=== PATIENT | female | born 1945 | race Caucasian/White ===

== ENCOUNTER 2018-08-30 16:55 | Emergency (ER) | payer MEDICARE, OTHER ==
--- NOTE | 2018-08-30 17:03 | UC ---
Upper Extremity HPI - HPI Summary HPI Summary: 73 yo female presents with LEFT arm injury. She tells me that about 30min [employer] she was walking her dog and tripped falling against wooden stairs. Her LEFT upper arm impacted the stairs. She did not hit her head or have LOC. Since that time she has been unable to lift her left arm due to pain. She has not taken anything for her discomfort. She denies numbness or tingling. - History of Current Complaint Stated Complaint: ARM INJURY Time Seen by Provider: 08/30/18 17:03 Hx Obtained From: Patient Onset/Duration: Sudden Onset Severity Initially: Severe Severity Currently: Severe Pain Intensity: 10 Pain Scale Used: 0-10 Numeric - Allergies/Home Medications Allergies/Adverse Reactions: Allergies Allergy/AdvReac Type Severity Reaction Status Date / Time No Known Allergies Allergy Verified 08/30/18 17:11 Home Medications: Home Medications Lisinopril 40 mg PO DAILY WITH MEAL 08/30/18 [History Confirmed 08/30/18] Metoprolol Succinate [Toprol Xl] 25 mg PO DAILY WITH MEAL 08/30/18 [History Confirmed 08/30/18] hydroCHLOROthiazide [Hydrochlorothiazide] 12.5 mg PO BID 08/30/18 [History Confirmed 08/30/18] PMH/Surg Hx/FS Hx/Imm Hx Cardiovascular History: Hypertension - Family History Known Family History: Positive: Hypertension - Social History Occupation: Retired Lives: With Family Alcohol Use: Occasionally Substance Use Type: None Smoking Status (MU): Never Smoked Tobacco Review of Systems All Other Systems Reviewed And Are Negative: Yes Constitutional: Positive: Negative Skin: Positive: Negative Respiratory: Positive: Negative Cardiovascular: Positive: Negative Neurovascular: Positive: Negative Musculoskeletal: Positive: Other: - LEFT upper arm pain Neurological: Positive: Negative Psychological: Positive: Negative Physical Exam - Summary Physical Exam Summary: GENERAL: NAD. WDWN. No pain distress. SKIN: No rashes, sores, lesions, or open wounds. CHEST: No accessory muscle use. Breathing comfortably and in no distress. CV: Pulses intact radial and ulnar. Cap refill <2seconds MSK: LEFT ARM: Severe TTP over proximal/mid humerus. Unable to flex shoulder > 30deg due to pain. Ultrasound Spec strength intact. Moving elbow produces pain in upper arm. NEURO: Alert. Sensations intact hand and all fingers. PSYCH: Age appropriate behavior. Triage Information Reviewed: Yes Vital Signs: Vital Signs: Temp Pulse Resp BP Pulse Ox 98.0 F 97 20 190/82 99 08/30/18 17:05 08/30/18 17:05 08/30/18 17:05 08/30/18 17:05 08/30/18 17:05 Vital Signs Reviewed: Yes Upper Extremity Course/Dx - Course Course Of Treatment: She declined pain medication in the clinic. XR: IMPRESSION : #. Mildly impacted fracture at the surgical neck of the humerus. Predisposing decreased. bone density. Recheck BP 171/92. Discussed results with pt. Will place her in a sling and have her f/u with Orthopedics as soon as possible. She declined any rx for pain medication. Advised to use the sling as much as possible and remain immobile and RICE. - Differential Dx/Diagnosis Provider Diagnosis: Humerus surgical neck fracture Discharge - Sign-Out/Discharge Documenting (check all that apply): Patient Departure All imaging exams completed and their final reports reviewed: Yes - Discharge Plan Condition: Stable Disposition: HOME Patient Education Materials: Proximal Humerus Fracture (ED) Referrals: No Primary Care Phys,NOPCP [Primary Care Provider] - Cory Hudson MD [Medical Doctor] - As Soon As Possible Additional Instructions: If you develop a fever, shortness of breath, chest pain, new or worsening symptoms - please call your PCP or go to the ED. Your blood pressure was high at todays visit. Please see your primary provider within 4 weeks for recheck and re-evaluation. 1) Use your sling as much as possible and keep your shoulder immobile 2) Please call Orthopedics at the number below to schedule a follow up appointment as soon as possible - Billing Disposition and Condition Condition: STABLE Disposition: Home
[2018-08-30 17:43] VITALS: BP 171/92
== END 2018-08-30 18:09 | disposition home or self-care (01) ==
LOC: UCEAST 16:55
DX: S42.215A Unspecified nondisplaced fracture of surgical neck of left humerus, initial encounter for closed fracture (principal); W01.198A Fall on same level from slipping, tripping and stumbling with subsequent striking against other object, initial encounter; Y93.K1 Activity, walking an animal; Y92.9 Unspecified place or not applicable; I10 Essential (primary) hypertension
CPT/HCPCS: 99202; G0463